=== PATIENT | male | born 1945 | race Caucasian/White ===

== ENCOUNTER → 2020-01-16 | Outpatient (CLI) | payer BC ==
[2020-01-16 13:30] LABS: C REACTIVE PROTEIN QUANTITATIV < 0.30 MG/DL (0.00-0.30)
[2020-01-23 12:12] LABS: HLA-B27 Negative (.); Lyme Disease IgG Ab 18 kDa Ban Absent (.); Lyme Disease IgG Ab 23 kDa Ban Present (.); Lyme Disease IgG Ab 28 kDa Ban Absent (.); Lyme Disease IgG Ab 30 kDa Ban Absent (.); Lyme Disease IgG Ab 39 kDa Ban Absent (.); Lyme Disease IgG Ab 41 kDa Ban Absent (.); Lyme Disease IgG Ab 45 kDa Ban Absent (.); Lyme Disease IgG Ab 58 kDa Ban Absent (.); Lyme Disease IgG Ab 66 kDa Ban Absent (.); Lyme Disease IgG Ab 93 kDa Ban Present (.); Lyme Disease IgG West Blot Int Negative (.); Lyme Disease IgG/IgM Antibodie <0.91 ISR (0.00-0.90); Lyme Disease IgM Ab 23 kDa Ban Absent (.); Lyme Disease IgM Ab 39 kDa Ban Absent (.); Lyme Disease IgM Ab 41 kDa Ban Absent (.); Lyme Disease IgM Ab Quantitati 2.89 index (0.00-0.79); Lyme Disease IgM West Blot Int Negative (.)
== END ==
LOC: M LAB 12:08
PROVIDERS: ATTEND Ophthalmology Retina Specialist
DX: H20.011 Primary iridocyclitis, right eye (principal)

== ENCOUNTER → 2021-06-26 | Outpatient (REF) | payer MEDICARE ==
[~2021-06-26] MED LIST: ACET1TAB55 PO; AMLO1TAB25 PO; ASPI81TA26 PO; ATOR40TA75 PO; CARV6.25 PO; FURO40TA2 PO; ISOVUE-300 61% 50ML VIAL As Ordered ONE; LABE100T5 PO; LIDOCAINE 1% MDV 20ML VIAL As Ordered ONE; MIDAZOLAM INJ 2MG/2ML VIAL (J2250 PER 1MG) As Ordered ONE; MORP1SOL5 IV; MORP20SO IV; MORP20SO PO; NALO0.4I4 IV; OXYB5TAB10 PO; POLY17PO10 PO; PROB250C PO; PROC5INJ IV; SENN-83 PO; diphenhydrAMINE 50MG/ML VIAL (J1200) As Ordered ONE; fentaNYL 100 MCG/2 ML INJECTION As Ordered ONE
[2021-06-26 09:00] VITALS: BP 174/81
== END ==
LOC: EDSTATUS 07:30 → M IRPRO 07:53
DX: K66.1 Hemoperitoneum (principal); I82.403 Acute embolism and thrombosis of unspecified deep veins of lower extremity, bilateral; E78.5 Hyperlipidemia, unspecified; I11.0 Hypertensive heart disease with heart failure; I25.10 Atherosclerotic heart disease of native coronary artery without angina pectoris; I50.9 Heart failure, unspecified; Z79.82 Long term (current) use of aspirin; Z79.899 Other long term (current) drug therapy; Z95.1 Presence of aortocoronary bypass graft

== ENCOUNTER → 2021-07-09 | Outpatient (POV) | payer MEDICARE ==
[~2021-07-09] VITALS: Ht 172.7 cm; Wt 67.7 kg
[~2021-07-09] MED LIST changes: -ISOVUE-300 61% 50ML VIAL As Ordered ONE; -LIDOCAINE 1% MDV 20ML VIAL As Ordered ONE; -MIDAZOLAM INJ 2MG/2ML VIAL (J2250 PER 1MG) As Ordered ONE; -diphenhydrAMINE 50MG/ML VIAL (J1200) As Ordered ONE; -fentaNYL 100 MCG/2 ML INJECTION As Ordered ONE
[2021-07-09 12:50] VITALS: BP 170/86
== END ==
LOC: M IRPOV 12:34
PROVIDERS: ATTEND Radiology Diagnostic Radiology
DX: Z48.812 Encounter for surgical aftercare following surgery on the circulatory system (principal); Z95.828 Presence of other vascular implants and grafts

== ENCOUNTER → 2022-01-07 | Outpatient (POV) | payer MEDICARE ==
[~2022-01-07] VITALS: Ht 172.7 cm; Wt 68.6 kg
[~2022-01-07] MED LIST changes: -LABE100T5 PO; +LABE100T71 PO
[2022-01-07 13:15] VITALS: BP 152/85
== END ==
LOC: M IRPOV 13:02
PROVIDERS: ATTEND Radiology Diagnostic Radiology
DX: Z09 Encounter for follow-up examination after completed treatment for conditions other than malignant neoplasm (principal); Z86.718 Personal history of other venous thrombosis and embolism; Z95.828 Presence of other vascular implants and grafts

== ENCOUNTER → 2022-01-24 | Outpatient (CLI) | payer MEDICARE | LOC: M RAD 14:52 | PROVIDERS: ATTEND Radiology Diagnostic Radiology | DX: I82.4Z3 Acute embolism and thrombosis of unspecified deep veins of distal lower extremity, bilateral (principal) ==

== ENCOUNTER → 2022-02-23 | Outpatient (CLI) | payer MEDICARE | LOC: M LABSMTC 12:00 | PROVIDERS: ATTEND Anesthesiology | DX: Z20.828 Contact with and (suspected) exposure to other viral communicable diseases (principal); Z11.59 Encounter for screening for other viral diseases ==

== ENCOUNTER → 2022-02-27 | Outpatient (CLI) | payer MEDICARE ==
[~2022-02-27] MED LIST changes: +ISOVUE-300 61% 50ML VIAL As Ordered ONE; +LIDOCAINE 1% MDV 20ML VIAL As Ordered ONE; +MIDAZOLAM INJ 2MG/2ML VIAL (J2250 PER 1MG) As Ordered ONE; +NS 1,000 ML IV SCH; +diphenhydrAMINE 50MG/ML VIAL As Ordered ONE; +fentaNYL 100 MCG/2 ML INJECTION As Ordered ONE
[2022-02-27 15:30] VITALS: BP 175/83
== END ==
LOC: M IRPRO 10:57
PROVIDERS: ATTEND Radiology Diagnostic Radiology
DX: Z45.89 Encounter for adjustment and management of other implanted devices (principal); Z86.718 Personal history of other venous thrombosis and embolism; Z95.828 Presence of other vascular implants and grafts
CPT/HCPCS: 37193; 99152; 99153; C1769; C1773; C1887; C1894; J1200; J1644; J2250; J3010; Q9967

== ENCOUNTER → 2022-03-18 | Outpatient (POV) | payer MEDICARE ==
[~2022-03-18] VITALS: Ht 172.7 cm; Wt 68.1 kg
[~2022-03-18] MED LIST changes: -ISOVUE-300 61% 50ML VIAL As Ordered ONE; -LIDOCAINE 1% MDV 20ML VIAL As Ordered ONE; -MIDAZOLAM INJ 2MG/2ML VIAL (J2250 PER 1MG) As Ordered ONE; -NS 1,000 ML IV SCH; -diphenhydrAMINE 50MG/ML VIAL As Ordered ONE; -fentaNYL 100 MCG/2 ML INJECTION As Ordered ONE
[2022-03-18 08:40] VITALS: BP 150/68
== END ==
LOC: M IRPOV 08:30
PROVIDERS: ATTEND Radiology Diagnostic Radiology
DX: Z48.812 Encounter for surgical aftercare following surgery on the circulatory system (principal)

== ENCOUNTER → 2022-05-01 | Outpatient (REF) | payer MEDICARE | LOC: M SFHCDERM 13:50 | PROVIDERS: ATTEND Nurse Practitioner Family | DX: C44.321 Squamous cell carcinoma of skin of nose (principal); C44.329 Squamous cell carcinoma of skin of other parts of face ==

== ENCOUNTER 2023-01-20 14:04 | Emergency (ER) | payer MEDICARE, OTHER ==
[~2023-01-20] VITALS: Ht 170.2 cm; Wt 67.4 kg
[2023-01-20] MEDS ORDERED: ISOS1TAB35 PO (14:33)
[2023-01-20 14:49] VITALS: TEMP 98.6
[2023-01-20 15:35] VITALS: BP 245/113
[2023-01-20] MEDS: ASPIRIN 81MG CHEW TABLET PO ONE (15:35)
[2023-01-20] MEDS: CARVedilol 12.5 MG TAB PO ONE (15:35)
[2023-01-20] MEDS: FUROSEMIDE 40 MG TAB PO ONE (15:35)
[2023-01-20] MEDS: ISOSORBIDE MON. (IMDUR) 30MG XR TAB PO ONE (15:36)
[2023-01-20 15:50] LABS: BASO % 0.1 % (0.0-1.0); EOS # 0.3 10^3/uL (0.0-0.5); EOS % 3.5 % (0.0-3.0); HEMATOCRIT 42.6 % (42.0-52.0); HEMOGLOBIN 14.9 g/dl (13.5-17.5); LYMPH # 1.1 10^3/uL (1.5-5.0); LYMPH % 15.6 % (24.0-44.0); MEAN CORPUSCULAR HEMOGLOBIN 31.8 pg (27.0-33.0); MONO # 0.8 10^3/uL (0.0-0.8); MONO % 10.9 % (2.0-8.0); NEUTROPHILS % 69.6 % (36.0-66.0); PLATELET COUNT, AUTOMATED 240 10^3/uL (150-450); RED BLOOD COUNT 4.68 10^6/uL (4.30-6.10); WHITE BLOOD COUNT 7.2 10^3/uL (4.0-10.0)
[2023-01-20 16:21] LABS: CALCIUM LEVEL 8.6 MG/DL (8.3-10.6); CREATININE FOR GFR 2.46 MG/DL (0.70-1.30); GLOMERULAR FILTRATION RATE 27.3 (>42); POTASSIUM SERUM 3.9 MMOL/L (3.5-5.1)
[2023-01-20 17:47] LABS: APPEARANCE, URINE CLEAR (CLEAR); BACTERIA, URINE AUTO NEGATIVE (NEGATIVE); BILIRUBIN, URINE AUTO NEGATIVE (NEGATIVE); BLOOD, URINE BLOOD NEGATIVE (NEGATIVE); COLOR, URINE STRAW (YELLOW); GLUCOSE, URINE (UA) AUTO NEGATIVE (NEGATIVE); KETONE, URINE AUTO NEGATIVE (NEGATIVE); LEUKOCYTE ESTERASE, URINE AUTO NEGATIVE (NEGATIVE); NITRITE, URINE AUTO NEGATIVE (NEGATIVE); PROTEIN, URINE AUTO 1+ mg/dL (NEGATIVE); RBC, URINE AUTO 0 /HPF (0-3); SPECIFIC GRAVITY URINE AUTO 1.009 (1.002-1.035); SQUAMOUS EPITHELIAL CELL UR AU 0 /HPF (0-6); UROBILINOGEN, URINE AUTO 0.2 mg/dL (0.0-2.0); WBC, URINE AUTO 0 /HPF (0-3)
[2023-01-20 18:28] VITALS: BP 135/88; O2SAT 99
== END 2023-01-20 19:12 | disposition home or self-care (01) ==
LOC: EDBD 14:04 → M ED 14:04
DX: I10 Essential (primary) hypertension (principal); Z86.73 Personal history of transient ischemic attack (TIA), and cerebral infarction without residual deficits; Z79.899 Other long term (current) drug therapy; Z79.82 Long term (current) use of aspirin